=== PATIENT | female | born 1980 | race Caucasian/White ===

== ENCOUNTER → 2019-07-05 | Outpatient (CLI) | payer MEDICARE, MEDICAID ==
--- NOTE | 2019-07-05 14:50 | RAD ---
EXAM DESCRIPTION: Hand,Left 3 Views (accession [id number]), Hand,Right 3 Views (accession [id number]) CLINICAL HISTORY: 39 years Female, PAIN IN LEFT HAND COMPARISON: None. Findings: Six radiographs Left hand: No acute fracture or dislocation. No aggressive osseous erosion. No soft tissue calcification. Joint spaces are preserved. Normal bone mineralization. No focal soft tissue swelling. Right hand: No acute fracture or dislocation. No aggressive osseous erosion. No soft tissue calcification. Joint spaces are preserved. Normal bone mineralization. No focal soft tissue swelling. IMPRESSION: No evidence of acute process. Electronically signed by: Darrion Montano MD 07/05/2019 2:48 PM [facility]
--- NOTE | 2019-07-05 14:50 | RAD ---
EXAM DESCRIPTION: Hand,Left 3 Views (accession [id number]), Hand,Right 3 Views (accession [id number]) CLINICAL HISTORY: 39 years Female, PAIN IN LEFT HAND COMPARISON: None. Findings: Six radiographs Left hand: No acute fracture or dislocation. No aggressive osseous erosion. No soft tissue calcification. Joint spaces are preserved. Normal bone mineralization. No focal soft tissue swelling. Right hand: No acute fracture or dislocation. No aggressive osseous erosion. No soft tissue calcification. Joint spaces are preserved. Normal bone mineralization. No focal soft tissue swelling. IMPRESSION: No evidence of acute process. Electronically signed by: Darrion Montano MD 07/05/2019 2:48 PM [facility]
== END ==
LOC: RAD 08:14
PROVIDERS: ATTEND Orthopaedic Surgery
DX: M79.641 Pain in right hand (principal); M79.642 Pain in left hand

== ENCOUNTER → 2019-10-02 | Outpatient (CLI) | payer MEDICARE, MEDICAID | LOC: LAB.O 12:48 | PROVIDERS: ATTEND Orthopaedic Surgery | DX: Z01.818 Encounter for other preprocedural examination (principal) ==

== ENCOUNTER 2019-10-16 05:49 | Day surgery (SDC) | payer MEDICARE, MEDICAID ==
[2019-10-16] MEDS ORDERED: PROPOFOL 200 MG/20 ML VIAL IV ONE (05:50)
[2019-10-16] MEDS ORDERED: MIDAZOLAM INJ 2 MG/2 ML VIAL IV ONE (10:00)
[2019-10-16] MEDS ORDERED: fentaNYL CITRATE INJ 50 MCG/ML 2 ML AMP IV ONE (10:00)
[2019-10-16] MEDS: LIDOCAINE 1% 10 ML VIAL INJ ONE ×2 (10:05)
[2019-10-16] MEDS: BUPIVACAINE 0.25% INJ 30 ML VIAL INJ ONE (10:05)
[2019-10-16] MEDS: ceFAZolin SODIUM 1 GM VIAL INJ ONE ×2 (10:18→10:40)
[2019-10-16] MEDS: VANCOMYCIN HCL INJ 1,000 MG VIAL IVPB ONE ×2 (10:18→10:40)
[2019-10-16 11:02] VITALS: O2SAT 95
[2019-10-16 11:30] VITALS: BP 145/83; TEMP 97.1
--- NOTE | 2019-10-17 09:39 | OP ---
DATE OF PROCEDURE: 10/16/19 PREOPERATIVE DIAGNOSIS: 1. Right carpal tunnel syndrome. POSTOPERATIVE DIAGNOSIS: 1. Right carpal tunnel syndrome. PROCEDURE: 1. Carpal tunnel release. SURGEON: Nicholas Loya MD. STRAP SEWER: Craig Song CST, SA-C. ANESTHESIA: Local with sedation. COMPLICATIONS: None. FINDINGS: 1. Thickening of the transverse carpal ligament. 2. Narrowing of the median nerve across the carpal tunnel. INDICATION: Ms. Nava has a history of severe symptoms affecting her daily life consistent with carpal tunnel syndrome. Ms. Nava and I discussed her options and at this point, she has elected to undergo carpal tunnel release. After discussing the risks, benefits and alternatives to that, the patient has given informed consent for carpal tunnel release. PROCEDURE: The patient was brought to the Operating Room and placed in the supine position. Sedation was administered and local anesthetic was injected into the operative area under sterile conditions. After the injection of anesthetic, the arm was sterilely prepped and draped. A longitudinal incision was made directly overlying the transverse carpal ligament and blunt dissection was carried down to the ligament. The transverse carpal ligament was sharply transected along its length and a [place] elevator was used to ensure complete release of the ligament. Once release had been confirmed, the wound was thoroughly irrigated and the wound was closed with Nylon suture. A sterile dressing was placed and the patient was taken to the Day Surgery Unit. POSTOPERATIVE PLAN: The patient has been encouraged to do range of motion of the digits and will followup with us in two days. #[id number]
== END 2019-10-16 11:20 | disposition home or self-care (01) ==
LOC: AMB 05:49
PROVIDERS: ATTEND Orthopaedic Surgery
DX: G56.01 Carpal tunnel syndrome, right upper limb (principal); E66.9 Obesity, unspecified; F17.200 Nicotine dependence, unspecified, uncomplicated; F32.9 Major depressive disorder, single episode, unspecified; Z88.2 Allergy status to sulfonamides; Z88.6 Allergy status to analgesic agent; Z88.0 Allergy status to penicillin; Z79.899 Other long term (current) drug therapy
CPT/HCPCS: 01810; 64721; 80307; 81025; J0690; J2250; J3010; J3370; J3490